=== PATIENT | female | born 1995 | race Caucasian/White ===

== ENCOUNTER 2025-07-12 15:15 | Outpatient (CLI) | payer OTHER, SELFPAY | END 2025-07-12 15:16 | disposition home or self-care (01) | LOC: NFLDREF 07-15 08:08 | PROVIDERS: PCP Family Medicine; Referring Provider Family Medicine; Visit Provider Physician Assistant | DX: G40.909 Epilepsy, unspecified, not intractable, without status epilepticus (principal); O09.32 Supervision of pregnancy with insufficient antenatal care, second trimester; O99.352 Diseases of the nervous system complicating pregnancy, second trimester | CPT/HCPCS: 80183 ==

== ENCOUNTER 2025-08-09 13:45 | Outpatient (CLI) | payer OTHER, SELFPAY | END 2025-08-09 13:46 | disposition home or self-care (01) | LOC: NFLDREF 08-13 03:00 | PROVIDERS: PCP Family Medicine; Referring Provider Family Medicine; Visit Provider Obstetrics & Gynecology | DX: O99.350 Diseases of the nervous system complicating pregnancy, unspecified trimester (principal); G40.909 Epilepsy, unspecified, not intractable, without status epilepticus; Z3A.28 28 weeks gestation of pregnancy | CPT/HCPCS: 76815; 86592 ==

== ENCOUNTER 2025-08-09 13:48 | Outpatient (CLI) | payer OTHER, SELFPAY ==
--- NOTE | 2025-08-09 14:00 | CRLHL7_ITS ---
For Patients: As a result of the Century Cures Act, medical imaging exams and procedure reports are released immediately into your electronic medical record. You may view this report before your referring provider. If you have questions, please contact your health care provider. OB ULTRASOUND LIMITED BODY, TRANSABDOMINAL MATTEO by US: 11/01/2025. GA: 28 w, 0 d. Single. Comparison: 07/06/2025, 06/08/2025, 03/29/2025 (all prior from outside facility). INDICATION: Epilepsy affecting . TECHNIQUE: Real time palmer scale imaging of the fetus was performed. Transabdominal imaging performed. CERVIX: Not visualized. POSITIONING: Vertex. PLACENTA: Technique: Transabdominal. PLACENTA POSITION: Anterior. BIOMETRY: BPD: 7.3 cm. 29 w, 2 d, 77.7 percent. HC: 26.5 cm. 28 w, 6 d, 44.2 percent. AC: 24.3 cm. 28 w, 4 d, 61.3 percent. FL: 5.1 cm. 27 w, 2 d, 15.9 percent. FL/AC ratio: 20.9 percent. HC/AC ratio: 1.1. EFW: 1191 g. Weight: 2 lbs, 10 oz. age by this US: 28 w, 4 d. MATTEO by this US: 10/28/2025. Percentile by MATTEO: 45.0 percent. IMPRESSION: 1. Sonographic gestational age 28 weeks 4 days and sonographic due date 10/28/2025. Good correlation with dates. Normal interval growth. 2. Estimated weight 45th percentile. Abdominal circumference 61st percentile. Anirudh Royal M.D. Diagnostic Radiologist [email or web address] SP/Dictated by: Anirudh Royal MD @ 08/09/2025 4:04:00 PM (Electronically Signed)
== END 2025-08-09 13:49 | disposition home or self-care (01) ==
LOC: US 13:49
PROVIDERS: PCP Family Medicine; Visit Provider Obstetrics & Gynecology
DX: O99.353 Diseases of the nervous system complicating pregnancy, third trimester (principal); G40.909 Epilepsy, unspecified, not intractable, without status epilepticus; Z3A.28 28 weeks gestation of pregnancy
CPT/HCPCS: 76815; 86592

== ENCOUNTER 2025-08-17 08:34 | Outpatient (CLI) | payer OTHER, SELFPAY | END 2025-08-17 08:35 | disposition home or self-care (01) | LOC: NFLDREF 08-19 16:18 | PROVIDERS: PCP Family Medicine; Referring Provider Family Medicine; Visit Provider Obstetrics & Gynecology | DX: O99.353 Diseases of the nervous system complicating pregnancy, third trimester (principal); G40.909 Epilepsy, unspecified, not intractable, without status epilepticus; R73.09 Other abnormal glucose | CPT/HCPCS: 80183; 82951; 82952 ==

== ENCOUNTER 2025-09-07 13:52 | Outpatient (CLI) | payer OTHER, SELFPAY ==
--- NOTE | 2025-09-07 14:00 | CRLHL7_ITS ---
For Patients: As a result of the Cures Act, medical imaging exams and procedure reports are released immediately into your electronic medical record. You may view this report before your referring provider. If you have questions, please contact your health care provider. OB ULTRASOUND MATTEO by US: 11/01/2025. GA: 32 w, 1 d. Single. Comparison: Ultrasound 08/09/2025, 07/06/2025. INDICATION: Epilepsy. TECHNIQUE: Real time grayscale imaging of the fetus was performed. Transabdominal. CERVIX: Not visualized. POSITIONING: Vertex. AMNIOTIC FLUID: 4.0 cm. SDP (N: greater than 2 x 1 cm) PLACENTA: Technique: Transabdominal. PLACENTA POSITION: Anterior. DOPPLER: heart rate: 133 bpm. BIOMETRY: BPD: 8.2 cm. 33 w, 0 d, 67.6%. HC: 29.0 cm. 32 w, 0 d, 11.9%. AC: 27.7 cm. 31 w, 5 d, 36%. FL: 6.1 cm. 31 w, 5 d, 26.1%. FL/AC ratio: 22.1%. HC/AC ratio: 1.1. EFW: 1851g. Weight: 4 lbs., 1 oz. age by this US: 32 w, 1 d. MATTEO by this US: 11/01/2025. Percentile by MATTEO: 30.1%. IMPRESSION: 1. Sonographic gestational age 32 weeks 1 day and sonographic due date 11/01/2025. Good correlation with dates. 2. Estimated weight 30th percentile. Abdominal circumference 36th percentile. Anirudh Royal M.D. Diagnostic Radiologist [email or web address] PRAKASH/hay guido/Dictated by: Anirudh Royal MD @ 09/07/2025 3:20:00 PM (Electronically Signed)
== END 2025-09-07 13:53 | disposition home or self-care (01) ==
LOC: US 13:53
PROVIDERS: PCP Family Medicine; Visit Provider Obstetrics & Gynecology
DX: O99.353 Diseases of the nervous system complicating pregnancy, third trimester (principal); G40.909 Epilepsy, unspecified, not intractable, without status epilepticus; Z3A.32 32 weeks gestation of pregnancy
CPT/HCPCS: 76816

== ENCOUNTER 2025-09-20 14:19 | Outpatient (CLI) | payer OTHER, SELFPAY ==
--- NOTE | 2025-09-20 14:00 | CRLHL7_ITS ---
For Patients: As a result of the Cures Act, medical imaging exams and procedure reports are released immediately into your electronic medical record. You may view this report before your referring provider. If you have questions, please contact your health care provider. OB ULTRASOUND MATTEO by LMP: 11/01/2025. GA: 34 w, 0 d. Single. Comparison: Ultrasound 09/07/2025, 08/09/2025, 07/06/2025. INDICATION: Epilepsy. TECHNIQUE: Real time grayscale imaging of the fetus was performed. Transabdominal. CERVIX: Not visualized. POSITIONING: Vertex. AMNIOTIC FLUID: 3.9 cm. SDP (N: greater than 2 x 1 cm) BIOPHYSICAL PROFILE: 2: Gross body movements 2: tone 2: Respiratory activity 2: Amniotic fluid SDP (N: greater than 2 x 1 cm) 8/8: Total score PLACENTA: Technique: Transabdominal. PLACENTA POSITION: Anterior. DOPPLER: heart rate: 131 bpm. IMPRESSION: Normal biophysical profile score 8/8. Anirudh Royal M.D. Diagnostic Radiologist [email or web address] PRAKASH/hay guido/Dictated by: Anirudh Royal MD @ 09/20/2025 3:18:00 PM (Electronically Signed)
== END 2025-09-20 14:20 | disposition home or self-care (01) ==
LOC: US 14:19
PROVIDERS: PCP Family Medicine; Visit Provider Obstetrics & Gynecology
DX: O99.353 Diseases of the nervous system complicating pregnancy, third trimester (principal); G40.909 Epilepsy, unspecified, not intractable, without status epilepticus; Z3A.34 34 weeks gestation of pregnancy; O09.93 Supervision of high risk pregnancy, unspecified, third trimester
CPT/HCPCS: 76819

== ENCOUNTER 2025-09-20 14:22 | Outpatient (CLI) | payer OTHER, SELFPAY | END 2025-09-20 14:23 | disposition home or self-care (01) | LOC: NFLDREF 14:23 | PROVIDERS: PCP Family Medicine; Visit Provider Obstetrics & Gynecology | DX: O09.93 Supervision of high risk pregnancy, unspecified, third trimester (principal); O99.353 Diseases of the nervous system complicating pregnancy, third trimester; G40.909 Epilepsy, unspecified, not intractable, without status epilepticus | CPT/HCPCS: 80183 ==

== ENCOUNTER 2025-09-27 14:00 | Outpatient (CLI) | payer OTHER, SELFPAY ==
--- NOTE | 2025-09-27 14:00 | CRLHL7_ITS ---
For Patients: As a result of the Century Cures Act, medical imaging exams and procedure reports are released immediately into your electronic medical record. You may view this report before your referring provider. If you have questions, please contact your health care provider. INDICATION: Epilepsy TECHNIQUE: Ultrasound OB pelvis transabdominal. Real-time palmer-scale imaging of the fetus was performed. COMPARISON: Ob ultrasound 09/20/2025 FINDINGS: Gestation: Single Presentation: Cephalic Placenta location: Anterior heart rate: 136 bpm Amniotic fluid volume single deepest pocket 5.7 cm, 2/2. motion 2/2. tone 2/2. breathing movements 2/2. IMPRESSION: Single live intrauterine gestation with a biophysical profile 05/21 at 35 weeks, 0 days. MATTEO of 11/01/2025. Dictated by Karin Go MD @ 09/27/2025 3:48:08 PM (Electronically Signed)
== END 2025-09-27 14:01 | disposition home or self-care (01) ==
LOC: US 14:00
PROVIDERS: PCP Family Medicine; Visit Provider Obstetrics & Gynecology
DX: O99.350 Diseases of the nervous system complicating pregnancy, unspecified trimester (principal); G40.909 Epilepsy, unspecified, not intractable, without status epilepticus
CPT/HCPCS: 76819

== ENCOUNTER 2025-10-05 13:46 | Outpatient (CLI) | payer OTHER, SELFPAY ==
--- NOTE | 2025-10-05 14:00 | CRLHL7_ITS ---
For Patients: As a result of the Century Cures Act, medical imaging exams and procedure reports are released immediately into your electronic medical record. You may view this report before your referring provider. If you have questions, please contact your health care provider. OB ULTRASOUND BIOPHYSICAL PROFILE MATTEO by LMP/US: 11/01/2025. GA: 36 w, 1 d. Single. Comparison: 09/27/2025, 09/20/2025, 09/07/2025. INDICATION: Epilepsy. TECHNIQUE: Real time palmer scale imaging of the fetus was performed. Transabdominal imaging performed. CERVIX: Not visualized. POSITIONING: Vertex. AMNIOTIC FLUID: 6.5 cm SDP (N: greater than 2 x 1 cm) BIOPHYSICAL PROFILE: Gross body movements: 2. tone: 2. Respiratory activity: 2. Amniotic fluid: 2. SDP (N: greater than 2 x 1 cm). Total score: 8. PLACENTA: Technique: Transabdominal. PLACENTA POSITION: Anterior. DOPPLER: heart rate: 139 bpm. BIOMETRY: BPD: 8.8 cm, 25 weeks 5 days, 47.6 percentile. HC: 31.8 cm, 35 weeks 6 days, 14.6 percentile. AC: 32.8 cm, 36 weeks 5 days, 76.5 percentile. FL: 7.0 cm, 36 weeks 1 day, 44.5 percentile. FL/AC ratio: 21.5 percent. HC/AC ratio: 1.0. EFW: 2917 g. Weight: 6 lbs, 7 oz. age by this US: 36 w, 1 d. MATTEO by this US: 11/01/2025. Percentile by MATTEO: 57.9 percentile. IMPRESSION: 1) Sonographic gestational age 36 weeks 1 day and sonographic due date 11/01/2025. Good correlation with dates. 2) Normal interval growth. 3) Estimated weight is the 58th percentile. Abdominal circumference 77th percentile. 4) Normal biophysical profile 05/21. ANIRUDH MIX M.D. Diagnostic Radiologist [email or web address] DW/Dictated by: Anirudh Mix MD @ 10/09/2025 10:36:00 PM (Electronically Signed)
== END 2025-10-05 13:47 | disposition home or self-care (01) ==
LOC: US 13:47
PROVIDERS: PCP Family Medicine; Visit Provider Obstetrics & Gynecology
DX: O99.353 Diseases of the nervous system complicating pregnancy, third trimester (principal); G40.909 Epilepsy, unspecified, not intractable, without status epilepticus; Z3A.36 36 weeks gestation of pregnancy
CPT/HCPCS: 76816; 76819

== ENCOUNTER 2025-10-05 15:04 | Outpatient (CLI) | payer OTHER, SELFPAY ==
[2025-10-06 14:55] LABS: Strep B DNA Probe Negative (Negative)
[2025-10-07 08:27] LABS: Strep B Susceptibility Needed? No
== END 2025-10-05 15:05 | disposition home or self-care (01) ==
LOC: NFLDREF 15:06
PROVIDERS: PCP Family Medicine; Visit Provider Obstetrics & Gynecology
DX: O99.353 Diseases of the nervous system complicating pregnancy, third trimester (principal); G40.909 Epilepsy, unspecified, not intractable, without status epilepticus; Z3A.36 36 weeks gestation of pregnancy
CPT/HCPCS: 87081; 87653

== ENCOUNTER 2025-10-11 13:59 | Outpatient (CLI) | payer OTHER, SELFPAY ==
--- NOTE | 2025-10-11 14:00 | CRLHL7_ITS ---
For Patients: As a result of the Century Cures Act, medical imaging exams and procedure reports are released immediately into your electronic medical record. You may view this report before your referring provider. If you have questions, please contact your health care provider. OB ULTRASOUND BIOPHYSICAL PROFILE TRANSABDOMINAL MATTEO by US: 11/01/2025. GA: 37 w, 0 d. Single. Comparison: 10/05/2025, 09/27/2025, 09/20/2025. INDICATION: Epilepsy. TECHNIQUE: Real time palmer scale imaging of the fetus was performed. Transabdominal imaging performed. CERVIX: Not visualized. POSITIONING: Vertex. AMNIOTIC FLUID: 4.7 cm SDP (N: greater than 2 x 1 cm) BIOPHYSICAL PROFILE: Gross body movements: 2. tone: 2. Respiratory activity: 2. Amniotic fluid: 2. SDP (N: greater than 2 x 1 cm). Total score: 8. PLACENTA: Technique: Transabdominal. PLACENTA POSITION: Anterior. DOPPLER: heart rate: 139 bpm. IMPRESSION: Normal biophysical profile 05/21. Anirudh Royal M.D. Diagnostic Radiologist [email or web address] SP/Dictated by: Anirudh Royal MD @ 10/11/2025 2:44:00 PM (Electronically Signed)
== END 2025-10-11 14:00 | disposition home or self-care (01) ==
LOC: US 13:59
PROVIDERS: PCP Family Medicine; Visit Provider Obstetrics & Gynecology
DX: O99.353 Diseases of the nervous system complicating pregnancy, third trimester (principal); G40.909 Epilepsy, unspecified, not intractable, without status epilepticus; Z3A.37 37 weeks gestation of pregnancy
CPT/HCPCS: 76819